=== PATIENT | female | born 1950 | race Caucasian/White ===

== ENCOUNTER 2024-11-11 07:42 | Day surgery (SDC) | payer MEDICARE, OTHER ==
[~2024-11-11 07:42] MED LIST: Albuterol 0.083% 2.5 MG/3 ML Neb Soln NEB PRN; HYDROmorphone 1 MG/ML Syringe IVPUSH PRN; Metoclopramide 10 MG/2 ML SDV IVPUSH PRN; Morphine 2 MG/ML SYRINGE IVPUSH PRN; Naloxone 0.4 MG/ML SDV IVPUSH PRN; Ondansetron 4 MG/2 ML SDV IVPUSH PRN; Phenylephrine HCl In 0.9% NaCl 1 MG/10 ML Syringe IVPUSH PRN; Sodium Chloride 0.9% 10 ML Syringe FLUSH PRN; Sodium Chloride 0.9% 2.5 ML Syringe FLUSH PRN; Sodium Chloride 0.9% 20 ML SDV IV PRN; fentaNYL 50 MCG/ML SDV IVPUSH PRN
[2024-11-11] MEDS: Lactated Ringers 1,000 ML IV SCH (08:22)
[2024-11-11] MEDS ORDERED: Propofol 200 MG/20 ML SDV ONE (08:22)
[2024-11-11] MEDS ORDERED: Lidocaine 1% 5 ML VIAL ONE (08:23)
[2024-11-11] MEDS ORDERED: fentaNYL 100 MCG/2 ML SDV ONE (08:23)
[2024-11-11] MEDS ORDERED: Dexamethasone 4 MG/ML 5 ML MDV ONE (08:23)
[2024-11-11] MEDS ORDERED: Ondansetron 4 MG/2 ML SDV ONE (08:23)
[2024-11-11 08:29] LABS: HEMATOCRIT 41.1 % (37.0-47.0); HEMOGLOBIN 13.8 g/dL (12.0-16.0); MEAN CORPUSCULAR HEMOGLOBIN 28.8 pg (28.0-32.0); MEAN CORPUSCULAR HGB CONC 33.6 g/dL (32.0-36.0); MEAN CORPUSCULAR VOLUME 85.8 fL (83.0-99.0); PLATELET COUNT,PLT 315 K/uL (150-400); RED BLOOD CELL COUNT 4.79 M/uL (4.10-5.30); WHITE BLOOD CELL COUNT,WBC 9.36 K/uL (3.9-11.3)
[2024-11-11] MEDS ORDERED: Ketorolac 30 MG/ML SDV ONE (09:51)
== END 2024-11-11 11:52 | disposition home or self-care (01) ==
LOC: MW.SDS 07:42
PROVIDERS: ATTEND Obstetrics & Gynecology
DX: C54.1 Malignant neoplasm of endometrium (principal); I10 Essential (primary) hypertension; E11.9 Type 2 diabetes mellitus without complications; E66.9 Obesity, unspecified; Z88.5 Allergy status to narcotic agent; Z88.1 Allergy status to other antibiotic agents; Z68.30 Body mass index [BMI] 30.0-30.9, adult; Z79.84 Long term (current) use of oral hypoglycemic drugs; Z79.899 Other long term (current) drug therapy
CPT/HCPCS: 36415; 58558; 85027; J1100; J1885; J2003; J2405; J2704; J3010; J7120; 00952; 99100

== ENCOUNTER 2025-01-07 06:21 | Day surgery (SDC) | payer MEDICARE, OTHER ==
[~2025-01-07 06:21] MED LIST changes: -HYDROmorphone 1 MG/ML Syringe IVPUSH PRN; -Metoclopramide 10 MG/2 ML SDV IVPUSH PRN; -Morphine 2 MG/ML SYRINGE IVPUSH PRN; -Phenylephrine HCl In 0.9% NaCl 1 MG/10 ML Syringe IVPUSH PRN; -Sodium Chloride 0.9% 10 ML Syringe FLUSH PRN; -Sodium Chloride 0.9% 2.5 ML Syringe FLUSH PRN; -Sodium Chloride 0.9% 20 ML SDV IV PRN
[2025-01-07] MEDS ORDERED: Ketorolac 30 MG/ML SDV ONE (07:07)
[2025-01-07] MEDS ORDERED: Magnesium Sulfate (4.06 MEQ/ML) 5 GM/10 ML SDV ONE (07:07)
[2025-01-07] MEDS ORDERED: fentaNYL 100 MCG/2 ML SDV ONE (07:07)
[2025-01-07] MEDS ORDERED: Ondansetron 4 MG/2 ML SDV ONE (07:07)
[2025-01-07] MEDS ORDERED: Lidocaine 2% 11 ML Jelly Filled Syringe ONE (07:07)
[2025-01-07] MEDS ORDERED: propofoL 1,000 MG/100 ML 100 ML ONE (07:08)
[2025-01-07] MEDS ORDERED: Dexamethasone 4 MG/ML 5 ML MDV ONE (08:18)
[2025-01-07] MEDS: Lactated Ringers 1,000 ML IV SCH (11:52)
== END 2025-01-07 09:27 | disposition home or self-care (01) ==
LOC: MW.SDS 06:21
PROVIDERS: ATTEND Surgery
DX: C54.1 Malignant neoplasm of endometrium (principal); E11.9 Type 2 diabetes mellitus without complications; I10 Essential (primary) hypertension; Z88.1 Allergy status to other antibiotic agents; Z88.5 Allergy status to narcotic agent; Z88.6 Allergy status to analgesic agent; Z79.84 Long term (current) use of oral hypoglycemic drugs; Z79.899 Other long term (current) drug therapy
CPT/HCPCS: 36561; 71045; 76000; A9270; C1788; J0665; J0690; J1100; J1642; J1885; J2003; J2405; J2704; J3010; J3475; J7120; 00532; 99100; J3490

== ENCOUNTER 2025-01-09 19:35 | Emergency (ER) | payer MEDICARE, OTHER | END 2025-01-09 21:28 | disposition home or self-care (01) | LOC: MW.ED 19:35 | DX: L23.1 Allergic contact dermatitis due to adhesives (principal); E78.00 Pure hypercholesterolemia, unspecified; I10 Essential (primary) hypertension; K21.9 Gastro-esophageal reflux disease without esophagitis; E11.9 Type 2 diabetes mellitus without complications; Z86.73 Personal history of transient ischemic attack (TIA), and cerebral infarction without residual deficits; Z90.49 Acquired absence of other specified parts of digestive tract; Z91.048 Other nonmedicinal substance allergy status; Z88.1 Allergy status to other antibiotic agents; Z88.8 Allergy status to other drugs, medicaments and biological substances; Z88.5 Allergy status to narcotic agent; Z79.899 Other long term (current) drug therapy; Z79.84 Long term (current) use of oral hypoglycemic drugs | CPT/HCPCS: 99283; A9270 ==

== ENCOUNTER 2025-03-08 19:41 | Emergency (ER) | payer MEDICARE, OTHER ==
[2025-03-08] MEDS ORDERED: Sodium Chloride 0.9% 2.5 ML Syringe FLUSH PRN (20:05)
[2025-03-08] MEDS ORDERED: Sodium Chloride 0.9% 10 ML Syringe FLUSH PRN (20:05)
[2025-03-08 20:14] LABS: BASOPHILS ABSOLUTE AUTO 0.03 K/uL (0.00-0.20); BASOPHILS PERCENT AUTO 0.9 % (0.0-1.0); EOSINOPHILS ABSOLUTE AUTO 0.05 K/uL (0.00-0.45); EOSINOPHILS PERCENT AUTO 1.5 % (0.0-6.0); IMMATURE GRAN ABSOLUTE AUTO 0.02 K/uL (0.00-0.05); IMMATURE GRAN PERCENT AUTO 0.6 % (0.0-0.4); LYMPHOCYTES ABSOLUTE AUTO 2.15 K/uL (1.00-4.80); LYMPHOCYTES PERCENT AUTO 65.3 % (24.0-44.0); MEAN PLATELET VOLUME 9.4 fL (9.4-12.3); MONOCYTES ABSOLUTE AUTO 0.43 K/uL (0.00-0.80); MONOCYTES PERCENT AUTO 13.1 % (0.0-8.0); NEUTROPHILS ABSOLUTE AUTO 0.61 K/uL (1.80-7.70); NEUTROPHILS PERCENT AUTO 18.6 % (41.0-71.0); NRBC ABSOLUTE 0.00 K/uL (0.00-0.02); NRBC PERCENT 0.0 /100WBC (0.0-0.2); PLATELET COUNT,PLT 232 K/uL (150-400); RED BLOOD CELL COUNT 4.17 M/uL (4.10-5.30); WHITE BLOOD CELL COUNT,WBC 3.29 K/uL (3.9-11.3)
[2025-03-08 20:22] LABS: INR 1.03 (0.86-1.11); PTT,PARTIAL THROMBOPLSTIN TIME 22.8 SEC (23.9-30.7)
[2025-03-08 20:32] LABS: A/G RATIO 1.0 (0.9-1.6); ALANINE AMINOTRANSFERASE,ALT 44.0 IU/L (14-63); ASPARTATE AMNIOTRANSFERASE,AST 23.0 IU/L (15-37); BILIRUBIN TOTAL 0.3 mg/dL (0.2-1.0); BLOOD UREA NITROGEN,BUN 18.0 mg/dL (7.0-18.0); CARBON DIOXIDE,CO2 22.8 mmol/L (21.0-32.0); CHLORIDE,CL 100.0 mmol/L (98-107); CREATININE 1.1 mg/dL (0.6-1.0); EST CRCL DRUG DOSING (CG) 43.28 mL/min; GLUCOSE RANDOM 192.0 mg/dL (74-106); POTASSIUM,K 3.0 mmol/L (3.5-5.1); PRO B-TYPE NATRIUR PEPT,BNPPRO 46.0 pg/mL (0-125); PROTEIN TOTAL,TP 7.5 g/dL (6.4-8.2); SODIUM,NA 137.0 mmol/L (136-145)
[2025-03-08 20:33] LABS: ESTIMATED GFR 53.0 mL/min (>60)
[2025-03-08] MEDS: Magnesium Sulfate 2 GM/50 mL 2 GM in Premix Bag 1 BAG IV ONE (21:13)
[2025-03-09] MEDS: Potassium Chloride 10% 20 MEQ/15 ML Soln 15 ML UD Cup PO ONE (02:34)
== END 2025-03-09 02:51 | disposition home or self-care (01) ==
LOC: MW.ED 19:41
DX: E86.0 Dehydration (principal); E87.6 Hypokalemia; E83.42 Hypomagnesemia; E78.00 Pure hypercholesterolemia, unspecified; I10 Essential (primary) hypertension; K21.9 Gastro-esophageal reflux disease without esophagitis; E11.9 Type 2 diabetes mellitus without complications; Z91.048 Other nonmedicinal substance allergy status; Z88.5 Allergy status to narcotic agent; Z88.1 Allergy status to other antibiotic agents; Z88.8 Allergy status to other drugs, medicaments and biological substances; Z79.84 Long term (current) use of oral hypoglycemic drugs; Z79.899 Other long term (current) drug therapy; Z90.49 Acquired absence of other specified parts of digestive tract
CPT/HCPCS: 36415; 71045; 80053; 83735; 83880; 84484; 85025; 85610; 85730; 93005; 96361; 96365; 96375; 99285; A9270; J1642; J3475; J7030; 93010; 99284